=== PATIENT | female | born 1935 | race Caucasian/White ===

== ENCOUNTER 2018-05-14 16:02 | Inpatient (IN) | payer MEDICARE, BC ==
[~2018-05-14] VITALS: Ht 162.6 cm; Wt 43.9 kg
[~2018-05-14 16:02] MED LIST: BUPROPION HCL150 M1 PO; BUPROPION HCL150 MG PO; CALTRATE-600 W600 MG PO; CLINORIL 1150 MG/TAB PO; CRANBERRY CONC500 MG PO; EFFEXOR 75M75 MG/TAB PO; EFFEXOR XR75 MG/CAP PO; ELMIRON 10100 MG/CA1 PO; EXCEDRIN 250 MG1 TAB PO; EXCEDRIN TENSION HA PO; FLOMAX 0.40.4 MG/CAP PO; FOSAMAX 70MG TA70 MG PO; GI COCKTAIL; MILK OF MA400 MG/51 PO; MVI; NEXIUM40 MG PO; PREMARIN 0.60.625 MG PO; PREMARIN0.625 MG PO; STOOL SOFTENER100 MG PO; TRAZODO50 MG PO; ULTRAM50 MG PO; VENTOLIN0.09 MG IH; VITAMIN B12 PO; VITAMIN D; VITAMIN D PO
[2018-05-14 16:57] VITALS: BP 118/60; PULSE 88; TEMP 98.4
--- NOTE | 2018-05-14 18:10 | NUR ---
Patient arrved to unit via EMS at 1645.
[2018-05-14 19:08] LABS: BILIRUBIN,TOTAL 0.2 mg/dL (0.0-1.0); TOTAL PROTEIN 6.4 gm/dL (6.4-8.2)
[2018-05-14 19:11] LABS: POTASSIUM 6.2 mmol/L (3.4-5.0)
[2018-05-14] MEDS ORDERED: SYNTHROID0.088 MG/T PO ×2 (19:11→19:12)
[2018-05-14 19:12] LABS: CREATININE, serum 4.06 mg/dL (0.52-1.25)
[2018-05-14] MEDS ORDERED: NORCO 325 MG-51 TAB PO (19:13)
[2018-05-14] MEDS ORDERED: ULTRAM 50MG TAB50 MG PO (19:13)
[2018-05-14] MEDS ORDERED: MAGNESIUM200 MG PO (19:14)
[2018-05-14] MEDS ORDERED: OCUVITE1 TA1 PO (19:14)
[2018-05-14] MEDS ORDERED: MULTI VITAMINS1 TAB PO (19:15)
--- NOTE | 2018-05-14 21:35 | NUR ---
PT RESTING IN BED. CONFUSED, aLERT BUT NOT ORIENTED. REPORTS PAIN IN ABD, SCHEDULED MEDS GIVEN. NO SOA. NO NEEDS AT THIS TIME. CALL LIGHT IN REACH . BED ALARM ON
[2018-05-14 22:22] VITALS: BP 91/51; PULSE 91; TEMP 96.9
[2018-05-15 01:01] VITALS: BP 106/53; PULSE 99; TEMP 97.5
[2018-05-15 04:00] VITALS: BP 100/55; PULSE 105; TEMP 99.1
--- NOTE | 2018-05-15 07:11 | NUR ---
pt slept off and on throughout night. reported pain 8/10 in abd, prn meds given. pt has a open sore on tailbone- covered with dressing. pt had an incontinent watery BM. linens changed, provided luba care. no needs at this time. call light inreach
--- NOTE | 2018-05-15 07:13 | NUR ---
bed alarm on. report given to CIPRIANO Gay
--- NOTE | 2018-05-15 07:42 | NUR ---
Patient is awake when entering room, states she needs to use the restroom. Was assisted with walking, patient stopped twice stating she couldn't walk anymore. She was encouraged and able to walk the rest of the way to the toilet. She was incontinent of stool, some formed, some loose in the brief. Did have more stool on the toilet and was able to obtain ordered sample. Patient states she is in pain while on the toilet, states pain is all over. PRN pain medication offered and accepted. Patient was provided luba care and assisted back to bed. Stated, "I'm just going to ." She then turned head away and closed her eyes. Call light is within reach.
--- NOTE | 2018-05-15 10:22 | NUR ---
SW attempted to met with the patient, but the patient was sleeping. SW will attempt at a later time.
[2018-05-15 10:24] LABS: MEAN CELL VOLUME 104 fl (80.0-100.0); MEAN CORPUSCULAR HGB CONC 30 g/dl (33.0-37.0); MEAN PLATELET VOLUME 9.4 fl (7.4-10.4); PLATELET COUNT 368 K/mm3 (130-400); RED BLOOD COUNT 2.54 M/mm3 (4.10-5.30); REDCELL DISTRIBUTION WIDTH-CV 22.5 % (11.5-14.5)
[2018-05-15 10:32] LABS: HEMATOCRIT 26.3 % (37.0-47.0); MEAN CORPUSCULAR HEMOGLOBIN 31 pg (27.0-31.0)
[2018-05-15 10:45] LABS: ALBUMIN 3.1 gm/dL (3.5-5.0); CALCIUM 8.9 mg/dL (8.4-10.2); PHOSPHOROUS 4.4 mg/dL (2.5-4.5); POTASSIUM 4.5 mmol/L (3.4-5.0)
[2018-05-15 10:47] LABS: CREATININE, serum 3.96 mg/dL (0.52-1.25)
[2018-05-15 10:55] LABS: IRON,SERUM 38 ug/dL (35-150)
[2018-05-15 11:04] LABS: TOTAL IRON BINDING CAPACITY 245 ug/dL (265-497)
[2018-05-15 11:31] LABS: FERRITIN 528 ng/mL (11-264)
[2018-05-15 12:52] LABS: ANISOCYTOSIS 4+; BAND 8 % (0-10); LYMPHOCYTE 7 % (20.0-51.0); NEUTROPHILS 80 % (42.0-75.2); OVALOCYTES 1+
--- NOTE | 2018-05-15 17:13 | NUR ---
Patient had a late lunch, states she is currently not hungry but is feeling tired. Lights turned off and door shut nursing home per her request. Call light is within reach.
[2018-05-15 20:21] VITALS: BP 90/60; PULSE 109; TEMP 98.4
--- NOTE | 2018-05-15 20:45 | NUR ---
PT RESTING IN BED ALERT AND ORDIENTED TO PERSON NOT PLACE. PAIN "ALL OVER"- 11/02. PRN MEDS GIVEN. PT HAD AN INCONTINENT LOOSE BM. RIZWANA CARE PROVIDED. NO NEEDS AT THIS TIME. CALL LIGHT IN REACH
[2018-05-16 00:13] VITALS: BP 100/42; PULSE 96; TEMP 98.2
--- NOTE | 2018-05-16 00:19 | NUR ---
PT CALLED OUT "HELP ME I CANT MOVE MY LEGS" THIS NURSE REMOVED THE MULTIPLE LAYERS OF COVERS- PT ABLE TO MOVE LEGS. PT REPORTS FEELING WEAKER AND DOES NOT KNOW WHATS GOING ON. PT aLERT AND ORIENTED SAME BEGINING OF SHIFT. PT REPORTS 9/10 PAIN- PRN MEDS GIVEN. PT INCONTINENT OF STOOL- BRIEF CHANGES RIZWANA CARE PROVIDED. NO NEEDS AT THIS TIME. CALL LIGHT INREACH. BED ALARM ON
--- NOTE | 2018-05-16 01:07 | NUR ---
pt requested and given snack. pt reports not being able to sleep and feeling weak. no needs at this time. will continue to monitor.
[2018-05-16 06:00] VITALS: BP 104/54; PULSE 93; TEMP 97.7
--- NOTE | 2018-05-16 06:34 | NUR ---
report given to CIPRIANO Gay
[2018-05-16 08:09] VITALS: BP 96/65; PULSE 99; TEMP 97.5
[2018-05-16 10:50] LABS: MEAN CELL VOLUME 102 fl (80.0-100.0); MEAN CORPUSCULAR HGB CONC 30 g/dl (33.0-37.0); MEAN PLATELET VOLUME 9.3 fl (7.4-10.4); PLATELET COUNT 348 K/mm3 (130-400); RED BLOOD COUNT 2.55 M/mm3 (4.10-5.30); REDCELL DISTRIBUTION WIDTH-CV 22.7 % (11.5-14.5)
[2018-05-16 10:54] LABS: HEMOGLOBIN 7.9 g/dl (12.5-16.0); MEAN CORPUSCULAR HEMOGLOBIN 31 pg (27.0-31.0)
[2018-05-16 11:05] LABS: ALBUMIN 3.1 gm/dL (3.5-5.0); CALCIUM 8.2 mg/dL (8.4-10.2); CREATININE, serum 3.23 mg/dL (0.52-1.25); PHOSPHOROUS 5.1 mg/dL (2.5-4.5); POTASSIUM 3.5 mmol/L (3.4-5.0)
--- NOTE | 2018-05-16 12:15 | NUR ---
Patient lives at home with her (Adrian Morales) in [place], [place] and plans to return home upon discharge if recovery goes well. Patient receives assistance from her and local friends and family as needed. Patient has no durable medical equipment anticipated needs at this time, her primary care physician is Dr. Kendra Rios, her pharmacy is [facility] ([place]), and she does have advance directives completed. Patient is undergoing treatment for acute renal failure, no further needs at this time, and social welfare research worker will follow as needed.
[2018-05-16 12:19] VITALS: BP 106/57; PULSE 101; TEMP 98.5
--- NOTE | 2018-05-16 14:04 | NUR ---
Offered to get patient up to recliner and she declined. Stated she just wants to sleep. Did explain to patient that it would be good to get out of bed and change position of her skin and she still declined.
[2018-05-16 14:23] LABS: ANISOCYTOSIS 4+; BAND 9 % (0-10); EOSINOPHIL 1 % (0-4); LYMPHOCYTE 14 % (20.0-51.0); NEUTROPHILS 69 % (42.0-75.2)
[2018-05-16 14:24] LABS: HYPOCHROMIA 1+; OVALOCYTES 1+; PLATELET ESTIMATE INCREASED (NORMAL)
[2018-05-16 15:26] VITALS: BP 92/53; PULSE 84; TEMP 98.5
--- NOTE | 2018-05-16 16:08 | NUR ---
Placed call to Dr. Ramos regarding potassium level of 3.5. No order for potassium replacement received.
--- NOTE | 2018-05-16 16:31 | NUR ---
reports bottom dentures are missing, top are present. Room has been searched. Patien declines to get out of bed and up in chair for sheet change and to check bed for teeth. cleaned upper dentures and gave them to patient to put in and I observed her do this, she then removed them from her mouth and sat them on the bedside table. I did ask if she removed teeth at home and she stated she would never do that. Did enter room and teeth were on the table a second time.
--- NOTE | 2018-05-16 17:20 | NUR ---
Patient is resting in bed, states she is hungry. Supper tray ordered for patient. Fluids continue to infuse at 100 ml/hr. Denies pain to IV site. No other needs identified. Call light is within reach.
[2018-05-16 19:34] VITALS: BP 72/43; PULSE 102; TEMP 98.3
--- NOTE | 2018-05-16 21:55 | NUR ---
Pt resting in bed napping, no C/O pain at this time, repositioned Pt, shift assessments complete, left Pt call light in reach, bed in lowest position, bed alarm on.
[2018-05-17] VITALS: BP 104/45; PULSE 95; TEMP 98.1
[2018-05-17 04:27] VITALS: BP 94/53; PULSE 95; TEMP 98.3
--- NOTE | 2018-05-17 05:13 | NUR ---
Pt has been sleeping during the night, no C/O pain, Vs have been stable.
[2018-05-17 07:46] LABS: BASO % 0.1 % (0.0-2.0); EOS # 0.2 (0.0-0.7); EOS % 2.2 % (0-4.0); GRAN # 6.6 (1.4-6.5); GRAN % 70.4 % (42.2-75.2); LYMPH # 1.3 (1.2-3.4); LYMPH % 14.2 % (20.0-51.0); MEAN CELL VOLUME 101 fl (80.0-100.0); MEAN CORPUSCULAR HGB CONC 31 g/dl (33.0-37.0); MEAN PLATELET VOLUME 9.6 fl (7.4-10.4); MONO # 0.8 (0.1-0.6); MONO % 8.2 % (1.7-9.3); PLATELET COUNT 309 K/mm3 (130-400); RED BLOOD COUNT 2.28 M/mm3 (4.10-5.30); REDCELL DISTRIBUTION WIDTH-CV 22.6 % (11.5-14.5)
[2018-05-17 07:52] LABS: HEMATOCRIT 23.1 % (37.0-47.0); HEMOGLOBIN 7.1 g/dl (12.5-16.0); MEAN CORPUSCULAR HEMOGLOBIN 31 pg (27.0-31.0)
[2018-05-17 07:56] LABS: ALBUMIN 2.6 gm/dL (3.5-5.0); CALCIUM 8.1 mg/dL (8.4-10.2); CREATININE, serum 2.82 mg/dL (0.52-1.25); PHOSPHOROUS 4.5 mg/dL (2.5-4.5); POTASSIUM 3.8 mmol/L (3.4-5.0)
--- NOTE | 2018-05-17 08:26 | NUR ---
Patient resting in bed upon entering room also stating she is very hungry. Ordered breakfast tray for her. Pericare provided and assisted to recliner. Patient stated she did not like sittin up in the chair and slid down multipe times. Patient verbalized she was having pain, PRN tylenol administered and patient was assisted back to bed and turned on her left side. No other needs identified. Call light is within reach.
[2018-05-17 08:45] VITALS: BP 96/48; PULSE 94; TEMP 98.5
[2018-05-17 11:18] VITALS: BP 96/51; PULSE 46; TEMP 98.4
--- NOTE | 2018-05-17 12:07 | NUR ---
Received call from Dr. Ramos regarding patients discharge plan. He wished for physical therapy to see patient soon to determine if patient needed snf services. Spoke with Chemo from physical therapy who came to evaluate patient. was in room while this was happening. reported to therapist that patients transfers were at her baseline and she could be cared for at home. Did notify Dr. Ramos of report from therapy and he stated he was going to speak with patients primary provider regarding this to see if he was comfortable with this decision. Dr. Ramos states he will return a call to me regarding the outcome.
--- NOTE | 2018-05-17 14:05 | NUR ---
ROBERT informed patient should be able to discharge today. There was a question if patient if safe to go home. PT was consulted. ROBERT spoke with PT and they report patient is at her baseline and can return home. ROBERT spoke with patient and patient's about discharge. Patient and are agreeable to this discharge plan. Patient has a walker and cane at home for ambulation if she needs it. ROBERT presented IM to patient's , he signed but did not request a copy.
--- NOTE | 2018-05-17 16:57 | NUR ---
Patient discharged at 1540 home with . Left VIA private vehicle. Discharge instructions given to with understanding.
[2018-05-18 20:37] LABS: KAPPA FREE LIGHT CHAIN-SERUM 17.3 mg/dL (()); LAMDA FREE LIGHT CHAIN SERUM 7.96 mg/dL (())
== END 2018-05-17 15:40 | disposition home or self-care (01) | DRG 683 ==
LOC: MEDICAL 16:02
PROVIDERS: ADMIT Internal Medicine Nephrology
DX: N17.9 Acute kidney failure, unspecified (principal); I12.0 Hypertensive chronic kidney disease with stage 5 chronic kidney disease or end stage renal disease; R64 Cachexia; Z68.1 Body mass index [BMI] 19.9 or less, adult; E46 Unspecified protein-calorie malnutrition; N39.0 Urinary tract infection, site not specified; N18.5 Chronic kidney disease, stage 5; Z66 Do not resuscitate; E87.5 Hyperkalemia; N30.10 Interstitial cystitis (chronic) without hematuria; M79.7 Fibromyalgia; G89.29 Other chronic pain; E78.5 Hyperlipidemia, unspecified; D64.9 Anemia, unspecified; N12 Tubulo-interstitial nephritis, not specified as acute or chronic
CPT/HCPCS: J7030